=== PATIENT | male | born 1975 | race Asian ===

== ENCOUNTER → 2016-08-13 | Outpatient (REF) | payer OTHER ==
[2016-08-13 11:48] LABS: MEAN CORPUSCULAR HEMOGLOBIN 28.9 pg (27.0-33.0); MEAN CORPUSCULAR HGB CONC 33.4 g/dl (32.0-36.5); MEAN CORPUSCULAR VOLUME 86.6 fl (80.0-96.0); RED CELL DISTRIBUTION WIDTH 12.4 % (11.5-14.5); WHITE BLOOD COUNT 6.6 K/mm3 (4.0-10.0)
[2016-08-13 11:49] LABS: ALBUMIN 4.1 GM/DL (3.2-5.2); ALBUMIN/GLOBULIN RATIO 1.17 (1.00-1.93); ALKALINE PHOSPHATASE 134 U/L (45-117); ALT/SGPT 63 U/L (12-78); ANION GAP 9 MEQ/L (8-16); AST/SGOT 26 U/L (15-37); BILIRUBIN,TOTAL 0.7 MG/DL (0.2-1.0); BLOOD UREA NITROGEN 20 MG/DL (7-18); CALCIUM LEVEL 8.8 MG/DL (8.5-10.1); CARBON DIOXIDE LEVEL 29 MEQ/L (21-32); CHLORIDE LEVEL 103 MEQ/L (98-107); CHOLESTEROL LEVEL 211 MG/DL (<200); CREATININE FOR GFR 1.05 MG/DL (0.70-1.30); GLOMERULAR FILTRATION RATE > 60.0 (>60); GLUCOSE, FASTING 162 MG/DL (70-105); POTASSIUM SERUM 4.3 MEQ/L (3.5-5.1); SODIUM LEVEL 141 MEQ/L (136-145); TOTAL PROTEIN 7.6 GM/DL (6.4-8.2); TRIGLYCERIDES LEVEL 121 MG/DL (<150)
== END ==
LOC: M SFHCLERA 09:18
PROVIDERS: ATTEND Family Medicine
DX: E78.2 Mixed hyperlipidemia (principal)

== ENCOUNTER → 2017-04-30 | Outpatient (CLI) | payer OTHER ==
--- NOTE | 2017-04-30 17:33 | REP ---
RIGHT SHOULDER: Three views of the right shoulder are performed. There is no acute or dislocation. There is mild narrowing at the acromioclavicular joint. IMPRESSION: Mild narrowing of the AC joint. Further evaluation may be made with MRI. Signed by Melchor York MD 05/01/2017 05:37 P
== END ==
LOC: M LRY 16:18
PROVIDERS: ATTEND Family Medicine
DX: S46.011A Strain of muscle(s) and tendon(s) of the rotator cuff of right shoulder, initial encounter (principal); W18.30XA Fall on same level, unspecified, initial encounter; Y92.009 Unspecified place in unspecified non-institutional (private) residence as the place of occurrence of the external cause

== ENCOUNTER → 2020-12-16 | Outpatient (CLI) | payer OTHER ==
[2020-12-16 10:51] LABS: ALBUMIN 3.9 GM/DL (3.2-5.2); ALT/SGPT 58 U/L (12-78); BILIRUBIN,TOTAL 0.9 MG/DL (0.2-1.0); BLOOD UREA NITROGEN 14 MG/DL (7-18); CALCIUM LEVEL 9.2 MG/DL (8.5-10.1); CARBON DIOXIDE LEVEL 30 MEQ/L (21-32); CHLORIDE LEVEL 107 MEQ/L (98-107); CHOLESTEROL LEVEL 209 MG/DL (<200); CHOLESTEROL RISK RATIO 3.317 (<5); GLOMERULAR FILTRATION RATE > 60.0 (>60); GLUCOSE, FASTING 151 MG/DL (70-100); HDL CHOLESTEROL 63 MG/DL (>40); LDL CHOLESTEROL 122 MG/DL (<100); NON-HDL-C 146 MG/DL; POTASSIUM SERUM 4.4 MEQ/L (3.5-5.1); SODIUM LEVEL 142 MEQ/L (136-145); TOTAL PROTEIN 7.3 GM/DL (6.4-8.2); TRIGLYCERIDES LEVEL 119 MG/DL (<150)
== END ==
LOC: M LAB 09:59
PROVIDERS: ATTEND Family Medicine
DX: E78.2 Mixed hyperlipidemia (principal)

== ENCOUNTER → 2020-12-19 | Outpatient (CLI) | payer OTHER ==
--- NOTE | 2020-12-18 16:19 | REP ---
INDICATION: PAIN. COMPARISON: 09/08/2012, 07/06/2007 TECHNIQUE: Weightbearing AP and lateral views of the right and left knee with bilateral sunrise view. FINDINGS: Mild symmetric degenerative changes involving the tibiofemoral joint spaces includes increased sclerosis along the tibial plateau (primarily bilateral lateral compartments) with mild joint space narrowing and subtle cortical irregularity at the lateral femoral condyles. Subtle spurring is also identified along the posterosuperior patellar margins. IMPRESSION: Relatively symmetric mild degenerative changes. <Electronically signed by Luis Meza > 12/18/20 [id number]
== END ==
LOC: M SOG 10:24
PROVIDERS: ATTEND Orthopaedic Surgery Adult Reconstructive Orthopaedic Surgery
DX: M25.761 Osteophyte, right knee (principal); M25.762 Osteophyte, left knee

== ENCOUNTER → 2021-02-17 | Outpatient (CLI) | payer OTHER | LOC: M RAD 12:06 | PROVIDERS: ATTEND Orthopaedic Surgery Adult Reconstructive Orthopaedic Surgery | DX: M23.92 Unspecified internal derangement of left knee (principal); M25.762 Osteophyte, left knee ==

== ENCOUNTER → 2023-02-19 | Outpatient (CLI) | payer OTHER, MEDICAID ==
[2023-02-19 17:32] LABS: BASO % 0.2 % (0.0-1.0); EOS # 0.1 10^3/uL (0.0-0.5); EOS % 2.2 % (0.0-3.0); HEMATOCRIT 48.3 % (42.0-52.0); HEMOGLOBIN 15.8 g/dl (13.5-17.5); LYMPH # 2.2 10^3/uL (1.5-5.0); LYMPH % 36.1 % (24.0-44.0); MEAN CORPUSCULAR HEMOGLOBIN 28.8 pg (27.0-33.0); MEAN CORPUSCULAR HGB CONC 32.7 g/dl (32.0-36.5); MONO # 0.4 10^3/uL (0.0-0.8); MONO % 6.3 % (2.0-8.0); NEUTROPHILS # 3.3 10^3/uL (1.5-8.5); PLATELET COUNT, AUTOMATED 207 10^3/uL (150-450); RED BLOOD COUNT 5.49 10^6/uL (4.30-6.10)
[2023-02-19 17:56] LABS: FREE T4 1.47 NG/DL (0.89-1.76); THYROID STIMULATING HORMONE 0.631 uIU/ML (0.55-4.78)
[2023-02-19 17:59] LABS: ALKALINE PHOSPHATASE 115 U/L (46-116); ALT/SGPT 19 U/L (7.0-40); AST/SGOT < 8 U/L (<34); BILIRUBIN,TOTAL 0.7 MG/DL (0.3-1.2); BLOOD UREA NITROGEN 11 MG/DL (9-23); CARBON DIOXIDE LEVEL 29 MMOL/L (20-31); CHLORIDE LEVEL 104 MMOL/L (98-107); CHOLESTEROL LEVEL 173 MG/DL (<200); CHOLESTEROL RISK RATIO 3.15 (<5); CREATININE FOR GFR 0.79 MG/DL (0.70-1.30); GLOMERULAR FILTRATION RATE > 60.0 (>60); GLUCOSE, FASTING 162 MG/DL (60-100); HDL CHOLESTEROL 54.8 MG/DL (>40); LDL CHOLESTEROL 99.2 MG/DL (<100); NON-HDL-C 118.2 MG/DL; POTASSIUM SERUM 4.4 MMOL/L (3.5-5.1); SODIUM LEVEL 140 MMOL/L (136-145); TOTAL PROTEIN 6.9 G/DL (5.7-8.2); TRIGLYCERIDES LEVEL 95 MG/DL (<150)
== END ==
LOC: M WUC 11:40
PROVIDERS: ATTEND Family Medicine
DX: E78.5 Hyperlipidemia, unspecified (principal); E66.9 Obesity, unspecified; F41.9 Anxiety disorder, unspecified
CPT/HCPCS: 36415; 80053; 80061; 84439; 84443; 85025; G0463

== ENCOUNTER 2023-08-19 07:43 | Day surgery (SDC) | payer OTHER, MEDICAID ==
[~2023-08-19] VITALS: Ht 170.2 cm; Wt 95.3 kg
[~2023-08-19 07:43] MED LIST: GUAI100S4 PO; IBUP1TAB7 PO; NS 1,000 ML IV ONE; propofoL 200 MG/20 ML VIAL As Ordered ONE
[2023-08-19 09:22] VITALS: TEMP 96.7
[2023-08-19 09:36] VITALS: BP 135/81; O2SAT 100
== END 2023-08-19 09:47 | disposition home or self-care (01) ==
LOC: M OPP 07:43
PROVIDERS: ATTEND Internal Medicine Gastroenterology
DX: Z12.11 Encounter for screening for malignant neoplasm of colon (principal); G47.30 Sleep apnea, unspecified; Z99.89 Dependence on other enabling machines and devices; Z79.1 Long term (current) use of non-steroidal anti-inflammatories (NSAID)